=== PATIENT | female | born 1945 | race African-American/Black ===

== ENCOUNTER → 2019-05-11 | Day surgery (SDC) | payer MEDICARE ==
[~2019-05-11] MED LIST: CLON0.2T PO; IV RINGERS,LACTATED 1000ML 1,000 ML IV SCH; LIDOCAINE 2% PF 5 ML VIAL. ONE; LOSA100T14 PO; METO50TA6 PO; PRAV40TA2 PO; PROPOFOL 40 ML IV ONE; TRIA1TAB2 PO
[2019-05-11 09:13] VITALS: BP 170/83
--- NOTE | 2019-05-11 10:29 | HP ---
ADMIT DATE: 05/11/2019 REFERRING PHYSICIAN: Grupo Ortiz M.D. HISTORY OF PRESENT ILLNESS: This is a 73-year-old -[place] female with past medical history, which is significant for hypertension, hyperlipidemia, is seen for rectal bleeding and some painless in nature since . There has been no change in weight or appetite. No family history of inflammatory bowel disease or colon cancer is encountered and no prior colonoscopies have been noted. For continued issues, she requests additional evaluation. PAST MEDICAL HISTORY: Hypertension, hyperlipidemia. ALLERGIES: None. MEDICATIONS: Include clonidine, losartan, metoprolol, pravastatin and triamterene/hydrochlorothiazide. SOCIAL HISTORY: She is a nonsmoker, nondrinker. FAMILY HISTORY: Noncontributory. PAST SURGICAL HISTORY: Status post hysterectomy and joint replacement. REVIEW OF SYSTEMS: As per records. PHYSICAL EXAMINATION: GENERAL: Reveals a well-nourished, well-developed -[place] female. VITAL SIGNS: Temperature is 97.1, pulse 81, respiratory rate is 18. LUNGS: Clear. CARDIOVASCULAR: Reveals an S1, S2 without S3, S4 or appreciable murmur. ABDOMEN: Reveals a soft abdomen, normal bowel sounds without appreciable hepatosplenomegaly. EXTREMITIES: Reveals no cyanosis, clubbing or edema. IMPRESSION: Rectal bleeding and etiology to be determined. Differential includes colonic polyps, malignancy, hemorrhoids, cancer, inflammatory bowel disease. Colonoscopy is recommended to further assess. Risks and benefits have been previously discussed. The patient is willing to proceed at this time. GUMARO JOHNSON MD DR: NEAL/olimpia JOB#: [id number] / [id number]
--- NOTE | 2019-05-14 13:07 | PATHOLOGY ---
[facility] Accession Number: [id number] . 01 Material submitted: . colon - SIGMOID POLYP BIOPSY. Modifiers: sigmoid . 01 Clinical history: . Hematochezia . 02 Diagnosis: Colon biopsy, sigmoid colon polyp: - Tubular adenoma. (JPM:dmitri; 05/14/2019) QMS 05/14/2019 0934 Local . 02 Comment: There is no high grade dysplasia or evidence of malignancy. . 02 Electronically signed: . Maikel Mcintyre MD, Pathologist NPI- [id number] . 01 Gross description: . The specimen is received in formalin, labeled "Jose De Jesus, Xenia, sigmoid polyp BX" and consists of a fragment of pink-mccracken tissue measuring 0.4 x 0.3 x 0.2 cm which is entirely submitted in A1. (SDY; 05/11/2019) SYU/SYU 05/11/2019 1750 Local . 02 Pathologist provided ICD-10: D12.5 . 02 CPT . 173136 Specimen Comment: A courtesy copy of this report has been sent to [phone], [phone] Specimen Comment: [phone], Specimen Comment: Report sent to ,DR BROWN / DR BOTELLO Performed at: 01 [facility] [address], [place], [place] [id number] MD Mane Candelaria MD Phone: [phone] Performed at: 02 [facility] [address] [place], [place] [id number] MD Maikel Mcintyre MD Phone: [phone]
== END ==
LOC: ENDOS 06:48
PROVIDERS: ATTEND Internal Medicine Gastroenterology
DX: K62.5 Hemorrhage of anus and rectum (principal); D12.5 Benign neoplasm of sigmoid colon; K57.30 Diverticulosis of large intestine without perforation or abscess without bleeding; K64.0 First degree hemorrhoids; I10 Essential (primary) hypertension; E78.5 Hyperlipidemia, unspecified; Z90.710 Acquired absence of both cervix and uterus
CPT/HCPCS: 45331; J2001; J2704